=== PATIENT | male | born 1965 | race Caucasian/White ===

== ENCOUNTER 2022-07-30 09:22 | Outpatient (CLI) | payer MEDICARE, SELFPAY | END 2022-07-30 09:23 | disposition home or self-care (01) | PROVIDERS: PCP Physician Assistant Medical; Visit Provider Family Medicine | DX: M51.36 Other intervertebral disc degeneration, lumbar region (principal); M54.16 Radiculopathy, lumbar region | CPT/HCPCS: 62323; J0702; Q9966 ==

== ENCOUNTER 2022-12-13 08:29 | Outpatient (CLI) | payer MEDICARE, SELFPAY | END 2022-12-13 08:30 | disposition home or self-care (01) | LOC: INJ CL 08:29 | PROVIDERS: PCP Physician Assistant Medical; Visit Provider Family Medicine | DX: M51.36 Other intervertebral disc degeneration, lumbar region (principal); M54.16 Radiculopathy, lumbar region | CPT/HCPCS: 62323; J0702; Q9966 ==

== ENCOUNTER 2023-06-20 08:52 | Outpatient (CLI) | payer MEDICARE, SELFPAY ==
--- OUTSIDE RECORDS SUMMARY | 2023-06-20 08:54 | XMS_ITS | Continuity of Care Document ---
Author Name Unknown Organization [facility] Address [address] [place] [address] Phone Care Team Providers Care Manager Inventory Control Name Role Phone Andrés Gary MD Unavailable Unavailable Medications Medication Instructions Dosage Effective Dates (start - stop) Status Comments ACETAMINOPHEN (unknown strength) Not Available - Active GABAPENTIN (unknown strength) Not Available - Active CYCLOBENZAPRINE HCL (unknown strength) Not Available - Active TRAMADOL HCL (unknown strength) Not Available - Active DULOXETINE HCL (unknown strength) Not Available - Active METOPROLOL-HYDROCHLOROTH IAZIDE (unknown strength) Not Available - Active ATORVASTATIN CALCIUM (unknown strength) Not Available - Active Procedures Procedure Date Office/Outpatient Visit,[facility] 2020 Office/outpatient visit,[facility] 2010 Advance Directives Directive Yes / No Effective Date File Name No Information Encounters Encounter Description Practice Location Reason(s) For Visit Diagnoses Date Provider Providers Copied on Encounter [facility], [address], [place], [place], [address], tel:[phone] [facility] No Information Abdirahman Donahue [facility], [address] [place] [address] [address], [place], [address] , [place]. tel:[phone] Office/Outpat ient Visit,[facility], [address], [place], [place], [address], tel:[phone] [facility] Spinal stenosis, lumbar region with neurogenic claudication Sep- Mehbnguyen Donahue [facility], [address] [place] [address] [address], [place], [place], [address] , . tel:[phone] Referring Provider: Dc Campa [facility] [address] [facility], [place], [address]. tel:[phone] Office/outpat ient visit,new, mod Z [facility], [address], [place], [address], [place] tel:[phone] [facility] No Information 1 Abdirahman Bowen. [facility], [address] [place] [address] [address], [place], [place], [address] , [place]. tel:[phone] Family History Family Member Type Diagnosis Age At Onset No Information Payers Payer name Insurance type Covered republican ID Authorrosarioa sushmamalinda(s) [employer] [facility] 2021 [id number] Social History Type Description Quantity Date Captured Comments Sex Male Smoking Status No Information Chief Complaint And Reason For Visit No Information Reason For Referral Reason For Referral No Information History Of Present Illness Encounter Date Complaint History Of Prese nt Illness No Information Functional Status Date Functional Assessmen t No Information Instructions Date Instruction Additional Infor mation No Information Assessments Type Assessment Date No Information Patient Care Teams Name Effective Dates (start - stop) Status Members No Information
--- OUTSIDE RECORDS SUMMARY | 2023-06-20 08:54 | XMS_ITS | Continuity of Care Document ---
Author Name Unknown Organization [facility] Address [address] [place] [address] Phone Care Team Providers Care Vacuum Technician Name Role Phone RN, RN Unavailable Unavailable Allergies, Adverse Reactions, Alerts Substance Reaction Status Criticality No Known Allergies Active No Inform ation Medications Medication Instructions Dosage Effective Dates (start - stop) Status Comments VITAMIN D2 (unknown strength) take 1 capsule by oral route every week Not Available - Active TIROSINT (unknown strength) Not Available - Active Cymbalta 60 mg capsule,delayed release take 1 capsule by oral route every day 60 MG - Active Toprol XL 50 mg tablet,extended release take 1.5 tablets by oral route every day - Active CYCLOBENZAPRINE HCL 10MG TABS TAKE ONE TABLET BY MOUTH THREE TIMES A DAY NEEDED FOR MUSCLE SPASM. - No Longer Active GABAPENTIN 600MG TABS TAKE 2 TABLETS BY MOUTH IN THE MORNING, THEN TAKE 1 TABLET BY MOUTH IN THE AFTERNOON, AND TAKE 2 TABLETS BY MOUTH DAILY AT BEDTIME. - No Longer Active hydrocodone 5 mg-acetaminophen 325 mg tablet take 1 tablet by oral route up to twice a day as needed for severe breakthrough pain - No Longer Active hydrocodone 5 mg-acetaminophen 325 mg tablet take 1 tablet by oral route up to twice a day as needed for severe breakthrough pain - No Longer Active For - 11/26/2016 morphine ER 15 mg tablet,extended release take 1 tablet by oral route every 12 hours 15 MG - No Longer Active Reduce dose. morphine ER 15 mg tablet,extended release take 1 tablet by oral route daily. do not break or chew. Take this once daily for 15 days, then stop. - No Longer Active Reduce dose. Taper off. Procedures Procedure Date Est Pt Eval 15 Min RF Lumbar/Sacral Addt'l Level 7 RF Lumbar/Sacral Single Level 7 Moderate Sedation (older Than 5 Years) F RF Lumbar/Sacral Single Level b 7 RF Lumbar/Sacral Addt'l Level 7 RF Lumbar/Sacral Addt'l Level 7 RF Lumbar/Sacral Single Level 7 RF Lumbar/Sacral Addtl Level RF Lumbar/Sacral Addtl Level Est Pt Eval 25 Min Est Pt Eval 25 Min Est Pt Eval 25 Min barbiturates, NOS Tramadol amphetamine or methamphetamine Assay, phencyclidine Buprenorphine Cocaine Heroin metabolite assay of methadone Methylenedioxyamphetamines (MDA, MDEA, M DMA) assay of opiates Oxycodone Tapentadol Est Pt Eval 25 Min Est Pt Eval 25 Min Therapeutic Activities Therapeutic Procedure Neuromuscular Re-education Aquatic Therapy Neuromuscular Re-education Therapeutic Procedure Est Pt Eval 25 Min Aquatic Therapy Inj Anes Facet Jt; Lumb/sac-3rd Level Ap Inj Anes Facet Jt; Lumb/sac-1st Level Ap Inj Anes Facet Jt; Lumb/sac-2nd Level Ap Inj Anes Facet Jt; Lumb/sac-1st Level Ap Inj Anes Facet Jt; Lumb/sac-2nd Level Ap Inj Anes Facet Jt; Lumb/sac-3rd Level Ap Neuromuscular Re-education Therapeutic Procedure Est Pt Eval 15 Min Inj Anes Facet Jt; Lumb/sac-2nd Level Ma Inj Anes Facet Jt; Lumb/sac-1st Level Ma Inj Anes Facet Jt; Lumb/sac-3rd Level Ma Inj Anes Facet Jt; Lumb/sac-1st Level Ma Inj Anes Facet Jt; Lumb/sac-2nd Level Ma Inj Anes Facet Jt; Lumb/sac-3rd Level Ma Phys Therap Eval Neuromuscular Re-education Inj Anes Epidur; Lumb/sac-ea A 16 Inj Anes Epidur; Lumb/sac 1 Le 16 Est Pt Eval 25 Min Inj Anes Epidur; Lumb/sac 1 Le 16 Trans Epid Lumbosac each addl 6 Est Pt Eval 25 Min Est Pt Eval 15 Min Toxicology Test Group C New Pt Eval 45 Min Advance Directives Directive Yes / No Effective Date File Name No Information Encounters Encounter Description Practice Location Reason(s) For Visit Diagnoses Date Provider Providers Copied on Encounter [facility], [address], [place], [place], [address], [place] tel:[phone] [facility] No Information 7 RN RN. [address], [place], [place], [address], [place]. tel:[phone] Referring Provider: Mini Hinton, [address], [place], [address] . tel:[phone] [facility], [facility], [address], [place], [place], [address], [place] tel:[phone] [facility] No Information No Information Referring Provider: Mini Hinton, [address], [place], [address] . tel:[phone] [facility], [facility], [address], [place], [place], [address], [place] tel:[phone] [facility] No Information No Information Referring Provider: Mini Hinton, [address], [place], [address] . tel:[phone] Est Pt Eval 15 Min [facility], [facility], [address], [place], [address], [place] tel:[phone] [facility] Other intervertebral disc degeneration, lumbosacral regionLong term (current) use of opiate analgesic Romeo Kelly. [address], [address], [place], [place], [address], [place]. tel:[phone] Referring Provider: Mini Hinton, [address], [place], [address] . tel:[phone] [facility], [address], [address], [place], [address], [place] tel:[phone] [facility] Spondylosis w/o myelopathy or radiculopathy, lumbar regionSpondyls w/o myelopathy or radiculopathy, lumbosacr regionOther intervertebral disc degeneration, lumbar regionOther intervertebral disc degeneration, lumbosacral region Feb-0 7 Alex Llamas. [address], [place], [place], [address], [place]. tel:[phone] Referring Provider: aFrhad Moeller, [address], [place], [address] . tel:[phone] [facility], [address], [place], [place], [address], [place] tel:[phone] [facility] No Information Alex Llamas. [address], [place], [place], [address], [place]. tel:[phone] Referring Provider: Farhad Moeller, [address], [place], [address] . tel:[phone] Est Pt Eval 25 Min [facility], [address], [place], [place], [address], [place] tel:[phone] [facility] intermediate manager (current) use of opiate analgesicOther specified dorsopathies, lumbosacral regionOther specified dorsopathies, lumbar regionOther intervertebral disc degeneration, lumbosacral regionOther intervertebral disc degeneration, lumbar regionSpinal stenosis, lumbosacral regionSpondylo listhesis, lumbosacral region No Information Referring Provider: Mini Hinton, [address], [place], [address] . tel:[phone] Est Pt Eval 25 Min [facility], [address], [place], [place], [address], [place] tel:[phone] [facility] intermediate manager (current) use of opiate analgesicOther specified dorsopathies, lumbosacral regionOther specified dorsopathies, lumbar regionOther intervertebral disc degeneration, lumbosacral regionOther intervertebral disc degeneration, lumbar regionSpinal stenosis, lumbosacral regionSpondylo listhesis, lumbosacral region 6 No Information Referring Provider: Mini Hinton, [address], [place], [address] . tel:[phone] Est Pt Eval 25 Min [facility], [address], [place], [place], [address], tel:[phone] [facility] Spinal stenosis, lumbosacral regionOther intervertebral disc degeneration, lumbar regionOther intervertebral disc degeneration, lumbosacral regionOther specified dorsopathies, lumbar regionOther specified dorsopathies, lumbosacral regionLong term (current) use of opiate analgesicSpond ylolisthesis, lumbosacral region 6 No Information Referring Provider: Mini Hinton, [address], [place], [address] . tel:[phone] Est Pt Eval 25 Min [facility], [address], [place], [place], [address], tel:[phone] [facility] (current) use of opiate analgesicSpond ylolisthesis, lumbosacral regionSpinal stenosis, Lumbosacral regionOther intervertebral disc degeneration, lumbar regionOther intervertebral disc degeneration, lumbosacral regionOther specified dorsopathies lumbar regionOther specified dorsopathies lumbosacral region No Information Referring Provider: Mini Hinton, [address], [place], [address] . tel:[phone] Est Pt Eval 25 Min [facility], [address], [place], [place], [address], tel:[phone] [facility] Other intervertebral disc degeneration, lumbar regionOther intervertebral disc degeneration, lumbosacral regionSpinal stenosis, Lumbosacral regionSpondylo listhesis, lumbosacral regionOther specified dorsopathies lumbar regionOther specified dorsopathies lumbosacral regionLong term (current) use of opiate analgesic 6 No Information Referring Provider: Mini Hinton, [address], [place], [address] . tel:[phone] [facility], [address], [place], [place], [address], [place] tel:[phone] [facility] No Information 0- 6 Duran Morse. [address], [place], [place], [address], [place]. tel:[phone] Referring Provider: REFERRAL SELFASHOK. [facility], [address], [place], [place], [address], [place] tel:[phone] [facility] No Information 6 Duran Morse. [address], [place], [place], [address], [place]. tel:[phone] Referring Provider: REFERRAL SELFMN. [facility], [address], [place], [place], [address], [place] tel:[phone] [facility] No Information 6 Duran Morse. [address], [place], [place], [address], [place]. tel:[phone] Referring Provider: Mini Hinton, [address] [facility] [address], [place], [address] . tel:[phone] Est Pt Eval 25 Min [facility], [address], [place], [place], [address], [place] tel:[phone] [facility] Spondylolisthe sis, lumbosacral regionSpinal stenosis, Lumbosacral regionOther intervertebral disc degeneration, lumbar regionOther intervertebral disc degeneration, lumbosacral regionOther specified dorsopathies lumbar regionLong term (current) use of opiate analgesicOther specified dorsopathies lumbosacral region 0 6 No Information Referring Provider: REFERRAL SELFMN. [facility], [address], [place], [place], [address], [place] tel:[phone] [facility] No Information 6 Frank Rivera. [address], [place], [place], [address], [place]. tel:[phone] Referring Provider: REFERRAL ANDREEA, ASHOK. [facility], [address], [place], [address], [place] tel:[phone] [facility] Spondylosis without myelopathy or radiculopathy, lumbar regionSpondylo sis without myelopathy or radiculopathy, lumbosacral regionOther intervertebral disc degeneration, lumbar regionLow back painOther specified dorsopathies lumbar regionSpondylo listhesis, lumbosacral regionOther intervertebral disc degeneration, lumbosacral region 6 Alex Llamas. [address], [place], [place], [address], [place]. tel:[phone] Referring Provider: Farhad Moeller, [address], [place], [address] . tel:[phone] [facility], [address], [place], [place], [address], [place] tel:[phone] [facility] No Information 6 Alex Llamas. [address], [place], [place], [address], [place]. tel:[phone] Referring Provider: Farhad Moeller, [address], [place], [address] . tel:[phone] [facility], [address], [place], [place], [address], [place] tel:[phone] [facility] No Information 6 Deon Escoto. [address], [place], [place], [address], [place]. tel:[phone] Referring Provider: Tigist Chavarria, [address], [place], [address] . tel:[phone] Est Pt Eval 15 Min [facility], [address], [place], [place], [address], [place] tel:[phone] [facility] Spondylosis without myelopathy or radiculopathy, lumbar regionSpondylo sis without myelopathy or radiculopathy, lumbosacral regionOther intervertebral disc degeneration, lumbar regionOther intervertebral disc degeneration, lumbosacral regionSpondylo listhesis, lumbosacral regionOther specified dorsopathies lumbar regionLong term (current) use of opiate analgesic 6 No Information [facility], [address] [facility] [address], [place], [address], [place] tel:[phone] [facility] Other specified dorsopathies lumbar regionOther intervertebral disc degeneration, lumbosacral regionSpondylo sis without myelopathy or radiculopathy, lumbar regionSpondylo sis without myelopathy or radiculopathy, lumbosacral regionOther intervertebral disc degeneration, lumbar regionLow back painLong term (current) use of opiate analgesicSpond ylolisthesis, lumbosacral region 6 Alex Llamas. [address], [place], [place], [address], [place]. tel:[phone] Referring Provider: Farhad Moeller, [address], [place], [address] . tel:[phone] [facility], [address], [place], [place], [address], [place] tel:[phone] [facility] No Information 6 Alex Llamas. [address], [place], [place], [address], [place]. tel:[phone] Referring Provider: Farhad Moeller, [address], [place], [address] . tel:[phone] [facility], [address], [place], [place], [address], [place] tel:[phone] [facility] No Information 6 Duran Morse. [address], [place], [place], [address], [place]. tel:[phone] Referring Provider: Mini Hinton, [address], [place], [address] . tel:[phone] [facility], [address], [place], [address], [place] tel:[phone] [facility] Other intervertebral disc degeneration, lumbosacral regionOther specified dorsopathies lumbar regionSpondylo listhesis, lumbosacral regionLong term (current) use of opiate analgesicOther intervertebral disc degeneration, lumbar regionRadiculo rima, lumbar region 6 Alex Llamas. [address], [place], [place], [address], [place]. tel:[phone] Referring Provider: Farhad Moeller, [address], [place], [address] . tel:[phone] Est Pt Eval [address] [facility], [address], [place], [place], [address], [place] tel:[phone] [facility] Other intervertebral disc degeneration, lumbar regionOther intervertebral disc degeneration, lumbosacral regionOther specified dorsopathies lumbar regionSpondylo listhesis, lumbosacral regionLong term (current) use of opiate analgesic 6 No Information [facility], [address], [place], [place], [address], [place] tel:[phone] [facility] No Information 6 Alex Llamas. [address], [place], [place], [address], [place]. tel:[phone] Referring Provider: Farhad Moeller, [address], [place], [address] . tel:[phone] Est Pt Eval 25 Min [facility], [address], [place], [place], [address], [place] tel:[phone] [facility] Other intervertebral disc degeneration, lumbar regionOther intervertebral disc degeneration, lumbosacral regionOther specified dorsopathies lumbar regionSpondylo listhesis, lumbosacral regionLong term (current) use of opiate analgesic No Information Est Pt Eval 15 Min [facility], [address], [place], [place], [address], [place] tel:[phone] [facility] Other spondylosis with radiculopathy, lumbar regionOther intervertebral disc degeneration, lumbosacral regionLong term (current) use of opiate analgesic 6 No Information New Pt Eval 45 Min [facility], [address], [place], [place], [address], [place] tel:[phone] [facility] Other spondylosis with radiculopathy, lumbar regionSpondylo listhesis, lumbar regionRadiculo rima, lumbosacral regionSpinal stenosis, Lumbar regionLong term (current) use of opiate analgesic 6 No Information [facility], [address], [place], [place], [address], [place] tel:[phone] [facility] No Information RN RN. [address], [place], [place], [address], [place]. tel:[phone] Referring Provider: REFERRAL SELF, [place]. Family History Family Member Type Diagnosis Age At Onset Grandma,Aunt,Uncle Problem (finding) Diabetes mellitus Father Problem (finding) Heart disease Father,uncles,aunt Problem (finding) Cancer Great Grandma Problem (finding) Diabetes mellitus Payers Payer name Insurance type Covered constitution party ID Cem anguiano(s) [employer] [id number] Social History Type Description Quantity Date Captured Comments Sex Male Smoking Status No Information Chief Complaint And Reason For Visit No Information Reason For Referral Reason For Referral No Information Plan Of Treatment Date Type Action Status Goal Tobacco cessation counseling completed History Of Present Illness Encounter Date Complaint History Of Prese nt Illness No Information Functional Status Date Functional Assessmen t No Information Instructions Date Instruction Additional Infor mation No Information Assessments Type Assessment Date No Information Patient Care Teams Name Effective Dates (start - stop) Status Members No Information
== END 2023-06-20 08:53 | disposition home or self-care (01) ==
LOC: INJ CL 08:52
PROVIDERS: PCP Physician Assistant Medical; Visit Provider Family Medicine
DX: M51.36 Other intervertebral disc degeneration, lumbar region (principal); M54.16 Radiculopathy, lumbar region
CPT/HCPCS: 62323; J0702; Q9966

== ENCOUNTER 2024-06-08 06:47 | Outpatient (CLI) | payer MEDICARE, SELFPAY ==
--- OUTSIDE RECORDS SUMMARY | 2024-06-08 06:54 | XMS_ITS | Encounter Summary ---
[facility] Address [address] [place] [address] Care Team Providers Care Splitter Machine Name Role Phone Viraj Nicole APRN, CNP Primary Care Provid er Encounter Details Date Type Department Care Team (Late st Contact Info) Description 08/29/2017 Correspondence [facility] Radiology [address] [place] [address] Radiology, Provider MRI SAFETY SHEET AND COMPATIBILITY FORM Social History Tobacco Use Types Packs/Day Years Used Date Smoking Tobacco: Never Smokeless Tobacco: Never Alcohol Use Standard Drinks/Week Comments No 0 (1 standard drink = 0.6 oz pur e alcohol) Sex and Gender Information Value Date Recorded Sex Assigned at Not on file Gender Identity Not on file Sexual Orientation Not on file documented as of this encounter Plan of Treatment Not on file documented as of this encounter Visit Diagnoses Not on filedocumented in this encounter Care Teams Splitter Machine Relationship Specialty Start Date End Date Viraj Nicole APRN, CNP [address] [place] [address] PCP - General Nurse Practitioner 08/21/18 documented as of this encounter
--- OUTSIDE RECORDS SUMMARY | 2024-06-08 06:54 | XMS_ITS | Clinical Summary ---
Author Organization [facility] Address [address], [place] [address] Care Team Providers Care Dye Tub Tender Name Role Phone Viraj Nicole APRN, CNP Primary Care Provid er Source Comments You are receiving this document as you are listed as the primary care provider,follow-up provider, or the patient has been referred to you for consultation.This is in compliance with the Medicare and[facility] EHR Incentive Program,which states Providers who transition their patient to another setting of careor provider of care or refers their patient to another provider of care shouldprovide summary care record for each transition of care or referral. [facility] Allergies No known active allergies Medications Medication Sig Dispensed Refills Start Date End Date Status acetaminophen (TYLENOL) 325 MG tablet Take 325-650 mg by mouth every 4 hours as needed for Pain. Active metoprolol-hydrochlor othiazide (LOPRESSOR-HCT) 100-25 MG tabletIndications:Ess ential hypertension (HRC) Take 1 Tablet by mouth daily. 90 Tablet 3 10/01/2018 Active DULoxetine (CYMBALTA) 20 MG capsule Take 1 Capsule by mouth daily. 90 Capsule 3 12/07/2018 Active cyclobenzaprine (FLEXERIL) 10 MG tablet TAKE 1 TABLET BY MOUTH THREE TIMES DAILY NEEDED FOR MUSCLE SPASM 90 Tablet 3 01/11/2019 Active Active Problems Problem Noted Date Diagnosed Date Low back pain 11/21/2016 Subclinical hypothyroidism 09/13/2016 Hypertension 03/11/2016 Intention tremor 09/09/2014 Lumbosacral radiculopathy 05/18/2014 Displacement of lumbar inter vertebral disc without myelopathy 01/16/2011 Herniation of lumbar intervertebral disc without myelopathy 01/16/2011 Displacement of cervical int ervertebral disc without myelopathy 04/12/2010 Degeneration of intervertebral disc of lumbosacr al region 04/12/2010 Herniation of cervical inter vertebral disc without myelopathy 04/12/2010 Resolved Problems Problem Noted Date Diagnosed Date Resolved Date Chronic low back pain 03/11/20162016 Immunizations Name Administration Dates Next Due Influenza IIV4 (Quadrivalent) 0.5mL (51231) 03/31,03/25/2017,05/03/2016 Tdap 08/23/2010 Family History Medical History Relation Name Comments No Known Problems Mother Relation Name Status Comments Father (Age 74) pneumonia Mother Alive Daughter Alive Maternal Grandfather Maternal Grandmother Paternal Grandfather Paternal Grandmother Sister 1 Alive Sister 2 Alive Social History Tobacco Use Types Packs/Day Years Used Date Smoking Tobacco: Never Smokeless Tobacco: Never Alcohol Use Standard Drinks/Week Comments Yes 0 (1 standard drink = 0.6 oz pur e alcohol) Occas Sex and Gender Information Value Date Recorded Sex Assigned at Not on file Gender Identity Not on file Sexual Orientation Not on file Last Filed Vital Signs Vital Sign Reading Time Taken Comments Blood Pressure 133/82 01/23/2019 8:19 AM CDT Pulse 49 01/23/2019 8:19 AM CDT Temperature 36.8 C (98.2 F) 01/23/2019 8:19 AM CDT Respiratory Rate 12 01/23/2019 8:19 AM CDT Oxygen Saturation 98% 01/23/2019 8:19 AM CDT Inhaled Oxygen Concentration - - Weight 98.4 kg (217 lb) 11/02/2018 11:01 AM CDT Height 182.9 cm (6') 11/02/2018 11:01 AM CDT Body Mass Index 29.43 11/02/2018 11:01 AM CDT Plan of Treatment Health Maintenance Due Date Last Done Comments Hep C Screening (Preventive Services) 1965 Medicare Annual Wellness Visit 1965 HepB (1) 1985 Zoster/Shingles (1 of 2) 01/02/2016 PSA Screening Discussion 08/30/2019 08/29/2018 DTaP/Tdap/Td (2 - Tdap) 08/23/2020 08/23/2010 Cholesterol 08/30/2023 08/29/2018 Colonoscopy 09/18/2023 09/17/2018 COVID-19 Vaccine ( season) 2024 Influenza (#1) 2024 04/13/2020, 07/2018, 04/18/2018, Additional history exists HIV Screening (Preventive Services) Completed 08/29/2018 HepA Aged Out No longer eligi ble based on patient's age to complete this topic Hib Aged Out No longer eligi ble based on patient's age to complete this topic IPV (Polio) Aged Out No longer eligi ble based on patient's age to complete this topic MCV4 Aged Out No longer eligi ble based on patient's age to complete this topic Pneumococcal Aged Out No longer eligi ble based on patient's age to complete this topic Procedures Procedure Name Priority Date/Time Associated Diagnosis Comments ENDOSCOPY, COLON, SCREENING/DIAGNOS TIC Routine 09/17/2018 3:18 PM CDT Screening for colon cancer PROSTATIC SPECIFIC ANTIGEN(SCREEN) Routine 08/29/2018 9:32 AM MEDICAL TECHNOLOGIST MICROBIOLOGY Screening for prostate cancer HIV 1/2 AG/AB 4TH GEN Routine 08/29/2018 9:32 AM MEDICAL TECHNOLOGIST MICROBIOLOGY Screening for HIV (human immunodeficiency virus) LIPID PANEL & DIRECT LDL (IF NEEDED) Routine 08/29/2018 9:32 AM MEDICAL TECHNOLOGIST MICROBIOLOGY Screening cholesterol level from Last 3 Months or Most Recently Relevant to Health Maintenance Results * Colonoscopy (09/17/2018 3:18 PM CDT) Anatomical Region Laterality Modality Other 09/17/2018 3:18 PM CDT Narrative 09/17/2018 3:18 PM CDT Patient Name: Deyvi Xiong Procedure Date: 09/17/2018 3:18 PM Date of : 1965 Admit Type: Outpatient Age: 53 Gender: Male Note Status: Finalized Attending MD: Misael Olea MD Procedure: Colonoscopy Indications: Screening for colorectal malignant neoplasm Providers: Misael Olea MD, Cynthia Mitchell RN Referring MD: Viraj Nicole NP Medicines: Midazolam 4 mg IV, Fentanyl 100 micrograms IV Complications: No immediate complications. Procedure: After I obtained informed consent, the scope was passed under direct vision. Throughout the procedure, the patient's blood pressure, pulse, and oxygen saturations were monitored continuously. The [id number] was introduced through the anus and advanced to the terminal ileum, with identification of the appendiceal orifice and IC valve. The colonoscopy was performed without difficulty. The patient tolerated the procedure well. The quality of the bowel preparation was excellent. Findings: The perianal exam findings include hemorrhoids. Two sessile polyps were found in the transverse colon and cecum. The polyps were 2 to 3 mm in size. These polyps were removed with a cold biopsy forceps. Resection and retrieval were complete. The entire examined colon appeared normal on direct and retroflexion views. Impression: - Hemorrhoids found on perianal exam. - Two 2 to 3 mm polyps in the transverse colon and in the cecum, removed with a cold biopsy forceps. Resected and retrieved. - The entire examined colon is normal on direct and retroflexion views. Recommendation: - Await pathology results. - Repeat colonoscopy in 5-10 years for surveillance based on pathology results. Procedure Code(s): --- Professional --- 51968, Colonoscopy, flexible; with biopsy, single or multiple Diagnosis Code(s): --- Professional --- Z12.11, Encounter for screening for malignant neoplasm of colon D12.3, Benign neoplasm of transverse colon (hepatic flexure or splenic flexure) D12.0, Benign neoplasm of cecum K64.9, Unspecified hemorrhoids CPT copyright 2016 [employer]. All rights reserved. The codes documented in this report are preliminary and upon meat team member review may be revised to meet current compliance requirements. Misael Olea MD 09/17/2018 4:30:27 PM Number of Addenda: 0 Note Initiated On: 09/17/2018 3:18 PM Endoscopy Report Procedure Note Misael Olea MD - 09/17/2018 Patient Name: Deyvi Xiong Procedure Date: 09/17/2018 3:18 PM Date of : 1965 Admit Type: Outpatient Age: 53 Gender: Male Note Status: Finalized Attending MD: Misael Olea MD Procedure: Colonoscopy Indications: Screening for colorectal malignant neoplasm Providers: Misael Olea MD, Cynthia Mitchell RN Referring MD: Viraj Nicole NP Medicines: Midazolam 4 mg IV, Fentanyl 100 micrograms IV Complications: No immediate complications. Procedure: After I obtained informed consent, the scope was passed under direct vision. Throughout the procedure, the patient's blood pressure, pulse, and oxygen saturations were monitored continuously. The [id number] was introduced through the anus and advanced to the terminal ileum, with identification of the appendiceal orifice and IC valve. The colonoscopy was performed without difficulty. The patient tolerated the procedure well. The quality of the bowel preparation was excellent. Findings: The perianal exam findings include hemorrhoids. Two sessile polyps were found in the transverse colon and cecum. The polyps were 2 to 3 mm in size. These polyps were removed with a cold biopsy forceps. Resection and retrieval were complete. The entire examined colon appeared normal on direct and retroflexion views. Impression: - Hemorrhoids found on perianal exam. - Two 2 to 3 mm polyps in the transverse colon and in the cecum, removed with a cold biopsy forceps. Resected and retrieved. - The entire examined colon is normal on direct and retroflexion views. Recommendation: - Await pathology results. - Repeat colonoscopy in 5-10 years for surveillance based on pathology results. Procedure Code(s): --- Professional --- 38607, Colonoscopy, flexible; with biopsy, single or multiple Diagnosis Code(s): --- Professional --- Z12.11, Encounter for screening for malignant neoplasm of colon D12.3, Benign neoplasm of transverse colon (hepatic flexure or splenic flexure) D12.0, Benign neoplasm of cecum K64.9, Unspecified hemorrhoids CPT copyright 2016 [employer]. All rights reserved. The codes documented in this report are preliminary and upon meat team member review may be revised to meet current compliance requirements. Misael Olea MD 09/17/2018 4:30:27 PM Number of Addenda: 0 Note Initiated On: 09/17/2018 3:18 PM Endoscopy Report Viraj Nicole NCR OPERATOR, EMERGENCY DEPARTMENT RN ET GI PROCED URE ORDERABLES * HIV 1/2 Ag/Ab 4th Generation (08/29/2018 9:32 AM MEDICAL TECHNOLOGIST MICROBIOLOGY) HIV-1 p24 Ag and HIV-1/HIV-2 Ab Nonreactive Nonreactive PN SOFT 08/29/2018 9:32 AM MEDICAL TECHNOLOGIST MICROBIOLOGY 08/29/2018 4:44 PM MEDICAL TECHNOLOGIST MICROBIOLOGY Narrative PN SOFT - 08/29/2018 5:30 PM MEDICAL TECHNOLOGIST MICROBIOLOGY Performed at [facility], [address] [place] [id number] CLIA number [id number] Viraj W Corey HENRY, EMERGENCY DEPARTMENT RN LAB_1 Performing Organization Address City/[facility] Co de Phone Number SOFT [address] [place] [phone] * (ABNORMAL) Lipid Panel - LDLD If Trig High (08/29/2018 9:32 AM MEDICAL TECHNOLOGIST MICROBIOLOGY) Cholesterol 215(H) 0 - 199 mg/dL PN SOFT Triglycerides 121 4 - 149 mg/dL PN SOFT HDL Cholesterol 39(L) >39 mg/dL PN SOFT Cholesterol/HDL Ratio Screen 5.5 PN SOFT LDL Calculated 152(H) 19 - 130 mg/dL PN SOFT Non HDL Chol, Calc 176(H) 0 - 159 mg/dL PN SOFT Hours Fasting 12.0 PN SOFT 08/29/2018 9:32 AM MEDICAL TECHNOLOGIST MICROBIOLOGY 08/29/2018 9:32 AM MEDICAL TECHNOLOGIST MICROBIOLOGY Narrative PN SOFT - 08/29/2018 10:11 AM MEDICAL TECHNOLOGIST MICROBIOLOGY Performed at [facility], [address] [place] [id number] CLIA number [id number] Viraj W Corey HENRY, EMERGENCY DEPARTMENT RN LAB_1 Performing Organization Address City/[facility]/ZIP Co de Phone Number SOFT [address] [place] [phone] * Prostatic Specific Antigen Screen (08/29/2018 9:32 AM MEDICAL TECHNOLOGIST MICROBIOLOGY) Prostate Specific Antigen 2.1 0.0 - 4.0 ng/mL PN SOFT Comment: The Santiago PSA Chemiluminescent immunoassay is used. Results obtained with different test methods or kits cannot be used interchangeably. 08/29/2018 9:32 AM MEDICAL TECHNOLOGIST MICROBIOLOGY 08/29/2018 4:44 PM MEDICAL TECHNOLOGIST MICROBIOLOGY Narrative PN SOFT - 08/29/2018 5:21 PM MEDICAL TECHNOLOGIST MICROBIOLOGY Performed at [facility], [address] [place] [address] CLIA number [id number] Viraj Nicole APRN, CNP LAB_1 [facility] [address] [place] [address] from Last 3 Months or Most Recently Relevant to Health Maintenance Care Teams Dye Tub Tender Relationship Specialty Start Date End Date Viraj Nicole APRN, CNP [address] [place] [address] PCP - General Nurse Practitioner 08/21/18
--- OUTSIDE RECORDS SUMMARY | 2024-06-08 06:54 | XMS_ITS | Encounter Summary ---
Author Organization [facility] Address [address] [place] [id number] Care Team Providers Care Care Specialist Name Role Phone No Ref-Primary, Physician Primary Care Provider [facility] [place] [facility] Provider Encounter Details Date Type Department Care Team (Late st Contact Info) Description 05/08/2021 Documentation Only INTERFACED REPORT Unknown, Provider Social History Tobacco Use Types Packs/Day Years Used Date Smoking Tobacco: Never Smokeless Tobacco: Never Alcohol Use Standard Drinks/Week Comments No 1.7 (1 standard drink = 0.6 oz p ure alcohol) rare Sex and Gender Information Value Date Recorded Sex Assigned at Not on file Legal Sex Male 11:38 AM CDT Gender Identity Not on file Sexual Orientation Not on file COVID-19 Exposure Response Date Recorded In the last month, have you been in contact with someone who was confirmed or suspected to have Coronavirus / COVID-19? Yes 05/08/2021 2:36 AM ICT BUSINESS ANALYST documented as of this encounter Plan of Treatment Not on file documented as of this encounter Visit Diagnoses Not on filedocumented in this encounter Additional Health Concerns Infection Onset Date Last Indicated Resolved Time COVID-19 05/06/2021 05/06/2021 05/27/2021 11:3 9 PM ICT BUSINESS ANALYST Rule Out COVID-19 11/28/2023 11/28/2023 11/28/2023 6:50 PM CDT documented as of this encounter Care Teams Care Specialist Relationship Specialty Start Date End Date No Ref-Primary, Physician PCP - General 05/06/21 11/27/23 Clinic, [facility] [address] [place] [id number] PCP - General 11/28/23 documented as of this encounter
--- OUTSIDE RECORDS SUMMARY | 2024-06-08 06:54 | XMS_ITS | Clinical Summary ---
Author Organization [facility] Address [place], [place] [address] Care Team Providers Care Deputy Insurance Commissioner Name Role Phone Roseanne Mota Primary Care Provider Allergies No known active allergies Medications acetaminophen (TYLENOL EXTRA STRGTH) 500 mg tablet Take 3 tablets by mouth 2 times daily. Max acetaminophen dose: 4000mg in 24 hrs. 0 019 Active aspirin (ECOTRIN) 81 mg enteric coated tabletIndications :Hyperlipidemia, unspecified hyperlipidemia type Take 1 Tablet (81 mg) by mouth once daily with a meal. 30 Tablet 021 Active tamsulosin (FLOMAX) 0.4 mg capsule Take 1 Capsule by mouth once daily. 023 Active benzonatate (TESSALON) 200 mg capsuleIndication s:Lower respiratory infection Take 1 Capsule (200 mg) by mouth 3 times daily if needed for Cough. 30 Capsule 023 Active CaneIndications:D izziness,Balance problem,Chronic bilateral low back pain with right-sided sciatica Narrow Base Quad Cane for home use. For 99 weeks. 1 Each 024 Active gabapentin (NEURONTIN) 300 mg capsuleIndication s:Chronic bilateral low back pain with right-sided sciatica TAKE 1 CAPSULE BY MOUTH THREE TIMES DAILY 270 Capsule 2 024 Active DULoxetine (CYMBALTA) 60 mg Delayed-release capsuleIndication s:Chronic bilateral low back pain with right-sided sciatica Take 1 Capsule (60 mg) by mouth once daily. 90 Capsule 3 024 Active celecoxib (CELEBREX) 200 mg capsuleIndication s:Lumbosacral radiculopathy at L5 Take 1 Capsule (200 mg) by mouth two times daily with meals. 120 Capsule 024 Active losartan (COZAAR) 50 mg tabletIndications :HTN (hypertension) Take 1.5 Tablets (75 mg) by mouth once daily. 135 Tablet 3 024 Active cyclobenzaprine (FLEXERIL) 10 mg tabletIndications :Injury of back, initial encounter Take 1 pill twice daily. 180 Tablet 3 024 Active methylPREDNISolon e (Medrol, Dennys,) 4 mg tabletIndications :Chronic bilateral low back pain with bilateral sciatica Take by mouth as instructed per packaging. 21 Tablet 024 Active metoprolol succinate (TOPROL XL) 50 mg sustained-release tabletIndications :HTN (hypertension) Take 1 tablet by mouth once daily 90 Tablet 2 024 Active traMADoL (ULTRAM) 50 mg tabletIndications :Lumbosacral radiculopathy at L5,Lumbar foraminal stenosis Take 1 Tablet (50 mg) by mouth 3 times daily if needed for Pain. 90 Tablet 1 024 Active atorvastatin (LIPITOR) 20 mg tabletIndications :Hyperlipidemia, unspecified hyperlipidemia type Take 1 Tablet (20 mg) by mouth at bedtime. 90 Tablet 1 024 Active atorvastatin (LIPITOR) 20 mg tabletIndications :Hyperlipidemia, unspecified hyperlipidemia type TAKE 1 TABLET BY MOUTH AT BEDTIME 90 Tablet 2 023 2023 Discontinued(R eorder (E-cancel not sent)) metoprolol succinate (TOPROL XL) 50 mg sustained-release tabletIndications :HTN (hypertension) Take 1 Tablet (50 mg) by mouth once daily. 90 Tablet 024 2023 Discontinued traMADoL (ULTRAM) 50 mg tabletIndications :Chronic pain syndrome Take 1 Tablet (50 mg) by mouth 3 times daily if needed for Pain. 90 Tablet 1 024 2023 Discontinued(R eorder (E-cancel not sent)) Active Problems Problem Noted Date Diagnosed Date Hyperlipidemia 05/08/2021 Action tremor 09/09/2014 Lumbosacral radiculopathy at S1 05/18/2014 Pain medication agreement 10/08/2011 Overview (05/02/2014): ERX verified 120 percocet/month, stable. 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 04/12/2010 C6-7 Disk Herniation from old WC injury 04/12/20 10 Essential hypertension, benign 12/10/2002 HTN (hypertension) Chronic low back pain Sinus tachycardia Elevated troponin Resolved Problems Problem Noted Date Diagnosed Date Resolved Date Pneumonia due to COVID-19 virus 05/08/2021 06/26/2023 Acute encephalopathy 05/08/2021 023 Encounters Date Type Department Care Team Description 05/31/2024 Refill [facility] [address] [place] [address] Roseanne Mota PA Refill Request (Atorvastatin/) 05/17/[address] [address] Dc Campa MD Medication Management (AMB EPIDURAL STEROID INJECTION//) 05/17/[address] [address] Dc Campa MD Error-please disregard 05/14/[address] [address] Roseanne Mota PA Refill Request (metoprolol succinate (TOPROL XL) 50 mg sustained-release tablet) 05/11/2024 Refill [facility] [address] [place] [address] Roseanne Mota PA Refill Request (Metoprolol Succinate) 03/24/[address] [address] Dc Campa MD Refill Request (traMADoL (ULTRAM) 50 mg tablet/) 03/15/[address] [address] Roseanne Mota PA from Last 3 Months Immunizations Name Administration Dates Next Due AMB INFLUENZA, IIV4 (AGE=>6M OS) MDLiu (Flu Clinic Only) 04/13/2020 Influenza, IIV4 03/30/2019, 8,03/25/2017, 6 Tdap 08/23/2010 Family History Medical History Relation Name Comments Cancer-prostate Father Stroke Father stroke at age 5 3. 2014 Lung cancer Mother Other Mother Brain mets Relation Name Status Comments Father Mother Social History Tobacco Use Types Packs/Day Years Used Date Smoking Tobacco: Never Smokeless Tobacco: Never Tobacco Cessation:Counseling Given: No Alcohol Use Standard Drinks/Week Comments No 0 (1 standard drink = 0.6 oz pur e alcohol) PHQ-2 Answer Date Recorded PHQ-2 TOTAL SCORE 0 06/26/2023 Social Connections Answer Date Recorded Do you often feel lonely or isolated from those around you? 0 10/13/2023 Financial Resource Strain Answer Date R ecorded Difficulty of Paying Living Expenses 3 10/13/2023 Difficulty of Paying Living Expenses Not on file 10/13/2023 Food Insecurity Answer Date Recorded Do you worry your food will run out before you are able to buy more? 1 10/13/2023 Transportation Needs Answer Date Record ed Does lack of transportation keep you from medica l appointments? 1 10/13/2023 Does lack of transportation keep you from work, meetings or getting things that you need? 1 10/13/2023 Housing Stability Answer Date Recorded What is your housing situation today? 1 10/13/2023 Sex and Gender Information Value Date Recorded Sex Assigned at Not on file Legal Sex Male 6:51 AM OUTDOOR LANDSCAPE ARCHITECT Gender Identity Not on file Sexual Orientation Not on file Obstetrics History Last Filed Vital Signs Vital Sign Reading Time Taken Comments Blood Pressure 133/89 02/24/2024 7:28 AM CDT Pulse 61 02/24/2024 7:28 AM CDT Temperature 36.6 C (97.9 F) 12/16/2023 2:46 PM CDT Respiratory Rate 18 12/16/2023 2:46 PM CDT Oxygen Saturation 98% 01/09/2024 9:46 AM CDT Inhaled Oxygen Concentration - - Weight 95.3 kg (210 lb) 02/24/2024 7:28 AM CDT Height 185.4 cm (6' 1) 12/16/2023 2:46 PM CDT Body Mass Index 27.71 12/16/2023 2:46 PM CDT Plan of Treatment Upcoming Encounters Date Type Department Care Team (Late st Contact Info) Description 06/08/2024 7:40 AM OUTDOOR LANDSCAPE ARCHITECT Office Visit [facility] [address] [place] [phone] Dc Campa MD [address] [place] [address] Health Maintenance Due Date Last Done Comments HIV for age 15-65 1981 Hepatitis C screening for age 18-79 01/02/1984 Zoster (shingles) series for age 50+ (1 of 2) 01/02/2016 Tetanus booster 08/23/2020 08/23/2010 COVID-19 vaccine series ( season) 2024 Influenza for age 50-64 02/29/2024 04/13/20 20, 03/30/2019, 04/18/2018, Additional history exists BMI (ht and wt on same day) for age 18+ 06/26/2024 06/26/2023, 09/24/2021, 11/29/2020, Additional history exists Depression screening for age 12+ 06/26/2024 06/26/2023, 05/31/2021, 08/22/2020, Additional history exists Lipids for age 45-75 09/07/2027 09/06/2022, 08/22/2020, 08/16/2019, Additional history exists Colonoscopy through age 75 09/17/202809/17 (Completed outside of [facility]), 09/17/2018 (Verified in Care Everywhere or Patient Record) Tdap Completed 08/23/2010 Pneumococcal series for age 6-64 Aged Out No longer eligible based on patient's age to complete this topic Procedures Procedure Name Priority Date/Time Associated Diagnosis Comments LC LIPID PANEL AND CHOL/HDL RATIO Routine 09/06/2022 9:45 AM OUTDOOR LANDSCAPE ARCHITECT HTN (hypertension) from Last 3 Months or Most Recently Relevant to Health Maintenance Results * (ABNORMAL) LC LIPID PANEL AND CHOL/HDL RATIO (09/06/2022 9:45 AM OUTDOOR LANDSCAPE ARCHITECT) [facility] Cholesterol, Total 168 100 - 199 mg/dL 09/10/2022 5:07 PM [facility]T [facility] Triglycerides 347(H) 0 - 149 mg/dL 09/10/2022 5:07 PM CDT [facility] ([facility]) HDL Cholesterol 32(L) >39 mg/dL 5:07 PM CDT [facility] ([facility]) VLDL Cholesterol Lex 56(H) 5 - 40 mg/dL 09/10/2022 5:07 PM CDT [facility] ([facility]) LDL Chol Calc (NIH) 80 0 - 99 mg/dL 09/10/2022 5:07 PM CDT [facility] ([facility]) T. Chol/HDL Ratio 5.3(H) 0.0 - 5.0 ratio 09/10/2022 5:07 PM CDT [facility] ([facility]) Comment: T. Chol/HDL Ratio Men Women 1/2 Avg.Risk 3.4 3.3 Avg.Risk 5.0 4.4 2X Avg.Risk 9.6 7.1 3X Avg.Risk 23.4 11.0 Blood BLOOD SPECIMEN / Unknown Venipuncture / Unknown 09/06/2022 9:45 AM OUTDOOR LANDSCAPE ARCHITECT 09/06/2022 9:48 AM OUTDOOR LANDSCAPE ARCHITECT Narrative [facility] ([facility]) - 09/10/2022 5:07 PM CDT Performed at: [address] [id number] Nutrition Coordinator: Jimmie Collins MD, Phone: [phone] us Roseanne BAHENA SEND OUTS Final R esult [facility] ([facility]) [address] [place] [address], from Last 3 Months or Most Recently Relevant to Health Maintenance Additional Health Concerns Infection Onset Date Last Indicated COVID History Comment:COVID+ test result dates: 05/06/21 [facility] Patient met COVID clearance criteria on 05/18/21. For evaluation of subsequent COVID+ results, refer to the algorithm on the AKN: Isolation Precaution Recommendations for Patients with History of COVID-19 Infection. 05/18/2021 05/18/2021 Insurance MEDICARE PART A HB ONLY [facility] [id number] [place] [address] T[address] UNDETERMINED [id number] [place] [address] [phone] [place] [address] Advance Directives * Full Code (Latest Code Status on File) Date Activated Date Inactivated Comments 05/08/2021 8:16 PM 05/19/2021 3:17 PM Question Answer Comments Code Status Discussion: Reviewed Preferences Care Teams Deputy Insurance Commissioner Relationship Specialty Start Date End Date Roseanne Mota PA [address] [place] [address] PCP - General Family Practice 09/18/11
--- OUTSIDE RECORDS SUMMARY | 2024-06-08 06:54 | XMS_ITS | Encounter Summary ---
Author Organization [facility] Address [address] [place] [id number] Care Team Providers Care Sail Repair Person Name Role Phone Doctor, Edinson FITZPATRICK Primary Care Provider Unavailabl e No Ref-Primary, Physician Primary Care Provider [facility] [place] Primary [facility] Provider Encounter Details Date Type Department Care Team (Late st Contact Info) Description 03/22/2016 Records - [facility] CONVERSION Scan, Provider Social History Tobacco Use Types Packs/Day Years Used Date Smoking Tobacco: Never Alcohol Use Standard Drinks/Week Comments [...] Infection Onset Date Last Indicated Resolved Time Rule Out COVID-19 05/06/2021 05/06/2021 05/07/2021 12:40 PM ARSON AND BOMB INVESTIGATOR COVID-19 05/06/2021 05/06/2021 05/27/2021 11:3 9 PM ARSON AND BOMB INVESTIGATOR Rule Out COVID-19 11/28/2023 11/28/2023 11/28/2023 6:50 PM CDT documented as of this encounter Care Teams Sail Repair Person Relationship Specialty Start Date End Date DoctorEdinson MD PCP - General 02/24/16 02/27/17 No Ref-Primary, Physician PCP - General 05/06/21 11/27/23 [facility] [place] [address] PCP - General 11/28/23 documented as of this encounter
--- OUTSIDE RECORDS SUMMARY | 2024-06-08 06:54 | XMS_ITS | Referral Summary ---
Author Organization [facility] Address [address] [place] [id number] Care Team Providers Care Sports Lawyer Name Role Phone [facility] Primary Care Provider Allergies Active Allergy Reactions Criticality Noted Date Comments No Known Drug Allergy 12/10/2002 Medications celecoxib (CELEBREX) 200 MG capsule Take 200 mg by mouth 2 times daily Active gabapentin (NEURONTIN) 300 MG capsule Take 300 mg by mouth daily Active cyclobenzaprine (FLEXERIL) 10 MG tablet Take 10 mg by mouth 2 times daily Active DULoxetine (CYMBALTA) 60 MG capsule Take 60 mg by mouth daily Active tamsulosin (FLOMAX) 0.4 MG capsule Take 0.4 mg by mouth daily Active traMADol (ULTRAM) 50 MG tablet Take 50 mg by mouth 3 times daily Active Vitamin D3 (CHOLECALCIFERO L) 25 mcg (1000 units) tablet Take 25 mcg by mouth daily Active multivitamin w/minerals (MULTI-VITAMIN) tablet Take 1 tablet by mouth daily Active losartan (COZAAR) 25 MG tabletIndicatio ns:Essential hypertension, benign Take 1 tablet (25 mg) by mouth daily 30 tablet 12/01/2023 Active metoprolol tartrate (LOPRESSOR) 100 MG tabletIndicatio ns:Essential hypertension, benign Take 1 tablet (100 mg) by mouth daily 30 tablet 12/01/2023 Active ondansetron (ZOFRAN ODT) 4 MG ODT tabIndications: Vertigo Take 1 tablet (4 mg) by mouth every 6 hours as needed for nausea or vomiting 20 tablet 11/30/2023 Active acetaminophen (TYLENOL) 325 MG tabletIndicatio ns:Essential hypertension, benign Take 2 tablets (650 mg) by mouth every 4 hours as needed for mild pain or other (and adjunct with moderate or severe pain or per patient request) 11/30/2023 Active atorvastatin (LIPITOR) 20 MG tabletIndicatio ns:Essential hypertension, benign,Cognitiv e impairment Take 1 tablet (20 mg) by mouth daily 30 tablet 1 11/30/2023 Active Active Problems Problem Noted Date Diagnosed Date Vertigo 11/28/2023 Family history of malignant neoplasm of gastrointestinal tract 04/24/2004 Family history of malignant neoplasm of prostate 04/24/2004 Essential hypertension, benign 12/10/2002 Social History Tobacco Use Types Packs/Day Years Used Date Smoking Tobacco: Never Smokeless Tobacco: Never Alcohol Use Standard Drinks/Week Comments No 1.7 (1 standard drink = 0.6 oz p ure alcohol) rare Adolescent Education Answer Date Record ed Getting School Help Needed Not on file 03/22 Sex and Gender Information Value Date Recorded Sex Assigned at Not on file Legal Sex Male 11:38 AM CDT Gender Identity Not on file Sexual Orientation Not on file Last Filed Vital Signs Vital Sign Reading Time Taken Comments Blood Pressure 146/93 11/30/2023 11:43 AM CDT Pulse 84 11/30/2023 11:43 AM CDT Temperature 36.9 C (98.5 F) 11/30/2023 11:43 AM CDT Respiratory Rate 18 11/30/2023 11:43 AM CDT Oxygen Saturation 97% 11/30/2023 11:43 AM CDT Inhaled Oxygen Concentration - - Weight 96.8 kg (213 lb 8 oz) 11/28/2023 5:03 PM CDT Height 188 cm (6' 2) 11/28/2023 5:03 PM CDT Body Mass Index 27.41 11/28/2023 5:03 PM CDT Plan of Treatment Not on file Procedures Procedure Name Priority Date/Time Associated Diagnosis Comments LIPID REFLEX TO DIRECT LDL PANEL Routine 11/30/2023 5:33 AM CDT BASIC METABOLIC PANEL Routine 11/30/2023 5:33 AM CDT HCL HIV 1 & 2 ANTIBODY Routine 04/24/2004 4:41 PM CDT COUNSELING OTHER SPECIFIED- concern re: HIV/Hepati HCL HEPATITIS C VIRUS ANTIBODY Routine 04/24/2004 4:41 PM CDT COUNSELING OTHER SPECIFIED- concern re: HIV/Hepati from Last 3 Months or Most Recently Relevant to Health Maintenance Results * (ABNORMAL) Lipid panel reflex to direct LDL (11/30/2023 5:33 AM CDT) Cholesterol 95 <200 mg/dL 11/30/2023 10:55 AM CDT [facility] Triglycerides 93 <150 mg/dL 11/30/2023 10:55 AM CDT [facility] Direct Measure HDL 35(L) >=40 mg/dL 11/30/2023 10:55 AM CDT [facility] LDL Cholesterol Calculated 41 <=100 mg/dL 11/30/2023 10:55 AM CDT [facility] Non HDL Cholesterol 60 <130 mg/dL 11/30/2023 10:55 AM CDT [facility] Patient Fasting > 8hrs? Unknown 11/30/2023 10:55 AM CDT [facility] Blood STRUCTURE OF LEFT HAND / Unknown Venipuncture / Unknown 11/30/2023 5:33 AM CDT 11/30/2023 5:42 AM CDT Narrative [facility] - 11/30/2023 10:55 AM CDT Cholesterol Desirable: <200 mg/dL Triglycerides Normal: Less than 150 mg/dL Borderline High: 150-199 mg/dL High: 200-499 mg/dL Very High: Greater than or equal to 500 mg/dL Direct Measure HDL Female: Greater than or equal to 50 mg/dL Male: Greater than or equal to 40 mg/dL LDL Cholesterol Desirable: <100mg/dL Above Desirable: 100-129 mg/dL Borderline High: 130-159 mg/dL High: 160-189 mg/dL Very High: >= 190 mg/dL Non HDL Cholesterol Desirable: 130 mg/dL Above Desirable: 130-159 mg/dL Borderline High: 160-189 mg/dL High: 190-219 mg/dL Very High: Greater than or equal to 220 mg/dL Dc Real APRN INFLATED BALL MOLDER LAB - BLOOD ORDERABLE S Final Result [facility] [address] [facility], [address] [place] [address], [facility] [address] Lab (1st floor, no room number) [place] [address], [facility] * (ABNORMAL) Basic metabolic panel (11/30/2023 5:33 AM CDT) [facility] Sodium 143 135 - 145 mmol/L 11/30/2023 6:10 AM CDT LABORATORY Comment:Reference intervals for this test were updated on 03/25/2023 to more accurately reflect our healthy population. There may be differences in the flagging of prior results with similar values performed with this method. Interpretation of those prior results can be made in the context of the updated reference intervals. Potassium 3.7 3.4 - 5.3 mmol/L 11/30/2023 6:10 AM CDT LABORATORY Chloride 108(H) 98 - 107 mmol/L 11/30/2023 6:10 AM CDT LABORATORY Carbon Dioxide (CO2) 29 22 - 29 mmol/L 11/30/2023 6:10 AM CDT LABORATORY Anion Gap 6(L) 7 - 15 mmol/L 11/30/2023 6:10 AM CDT LABORATORY Urea Nitrogen 15.1 6.0 - 20.0 mg/dL 11/30/2023 6:10 AM CDT LABORATORY Creatinine 0.89 0.67 - 1.17 mg/dL 11/30/2023 6:10 AM CDT LABORATORY GFR Estimate >90 >60 mL/min/1. 73m2 11/30/2023 6:10 AM CDT LABORATORY Calcium 9.0 8.6 - 10.0 mg/dL 11/30/2023 6:10 AM CDT LABORATORY Glucose 100(H) 70 - 99 mg/dL 11/30/2023 6:10 AM CDT LABORATORY Blood STRUCTURE OF LEFT HAND / Unknown Venipuncture / Unknown 11/30/2023 5:33 AM CDT 11/30/2023 5:42 AM CDT us Dc Real APRN INFLATED BALL MOLDER LAB - BLOOD ORDERABLE S Final Result [facility] [address] Lab (1st floor, no room number) [place] [address], [facility] * HEPATITIS C AB (04/24/2004 4:41 PM CDT) Hepatitis C Antibody Negative NEG [facility] 04/24/2004 4:41 PM CDT 04/24/2004 4:48 PM CDT us Mariah Cortez MD LABORATORY Final R esult [facility] [address] [place] [address] * HIV-1/HIV-2, SCREEN (04/24/2004 4:41 PM CDT) HIV 1&2 Antibody Negative NEG [facility] 04/24/2004 4:41 PM CDT 04/24/2004 4:48 PM CDT us Mariah Cortez MD LABORATORY Final R esult [facility] [address] [place] [address] from Last 3 Months or Most Recently Relevant to Health Maintenance Insurance [employer] MEDICARE ADVANTAGE [employer] AET MEDICARE ADVANTAGE Advance Directives For more information, please contact: [phone] * Full Code (Latest Code Status on File) Date Activated Date Inactivated Comments 11/28/2023 5:03 PM 11/30/2023 2:53 PM All basic and advanced life-sustaining interventions are performed as appropriate Question Answer Comments Code status determined by: Discussion with mike nt/ legal decision maker Care Teams Sports Lawyer Relationship Specialty Start Date End Date [facility], [address] [address] PCP - General 11/28/23
--- OUTSIDE RECORDS SUMMARY | 2024-06-08 06:54 | XMS_ITS | Encounter Summary ---
Author Organization [place] Address [address] [place] [address] Care Team Providers Care Drama Director Name Role Phone Doctor, None MD Primary Care Provider Unavailabl e No Ref-Primary, Physician Primary Care Provider [facility], [facility] Primary Care Provider Encounter Details Date Type Department Care Team (Late st Contact Info) Description 05/23/[address] [phone] Amrik Rose MD [address] [place] [address] ER ENCOUNTER (Primary Dx) Social History Tobacco Use Types Packs/Day Years Used Date Smoking Tobacco: Never Alcohol Use Standard Drinks/Week Comments Yes 1.7 (1 standard drink = 0.6 oz p ure alcohol) rare Sex and Gender Information Value Date Recorded Sex Assigned at Not on file Legal Sex Male 11:38 AM CDT Gender Identity Not on file Sexual Orientation Not on file documented as of this encounter Progress Notes * 05/23/2003 11:59 PM CSTAddended by: AMRIK ROSE on: 05/30/2003,5:11 PM Modules accepted: Progress Notes Addended by: MARION JULIO on: 05/30/2003,3:12 PM Modules accepted: Progress Notes 00:00 Emergency Depar tment Encounter-[facility]) [Entered: 00:00 Clinical Asst ([facility])] : 67 CHIEF COMPLAINT: Cough and fever. HISTORY OF PRESENT ILLNESS: Deyvi Xiong is a 38-yea r-old male who has been ill for the last two days. He has felt chilled and hot, has been coughing an d producing yellow phlegm with some mild tightness in his chest, has had no pain or shortness of snow th specifically, has had a sore throat and congestion. His and daughter are both ill with simil ar symptoms, but are not complaining of body aches like the patient is experiencing. He has been wel l otherwise, has no history of asthma. IMMUNIZATIONS: The patient did not get a flu shot this fall. MEDICATIONS: Pogz-wrd-zvcovjc cold remedies. ALLERGIES: None. PHYSICAL EXAMINATION: This is an alert male whose temperature is 97.8, pulse 99, respirations 18, blood pressure 138/80, pulse ox 96% on room air. HEENT exam shows that conjunctivae are clear, tympanic membranes normal. Mouth and ph arynx are mildly red, nose congested. CHEST shows clear equal breath sounds. CARDIOVASCULAR EXAM - R egular S1/S2 without murmur. ABDOMEN - Bowel sounds are active. It is soft and nontender. There ar e no masses or guarding. BACK is negative. EXTREMITIES are normally developed. SKIN is clear, no ra sh. NEURO - Patient is alert and oriented, exam within normal limits. EMERGENCY DEPARTMENT COURSE: The possibilities were discussed with the patient. He probably has a viral syndrome at this point. This could be influenza. He did not get a flu shot, and he is at risk. The patient will be treated conservatively with antibiotic coverage, as he has had a previous episode of walking pneumonia. DIS CHARGE PLAN: The patient was given a work slip excusing him from his duties for two days. Tylenol m ay be used every four hours for fevers or aches. He will be started on Zithromax 500 mg now, then 25 0 mg a day for four more days. Decongestant of choice may be used, Robitussin with codeine two tsp e very four hours as needed for cough (6 oz prescribed). He should drink extra fluids and needs to be rechecked with his doctor in 5-7 days or in 10-14 days. He may return to the Emergency Department as needed. DIAGNOSIS: 1. Respiratory infection. 2. Productive cough. [id number] DIANA HAGEN MD D : 05/24/2003 00:05 MT: Document: [id number] [place], [place] Name: DEYVI XIONG EMERGENCY ROOM ENCOUNTER Page 2 of 2 LCN: WOLF DSC: 05/23 [place], [place] Name: MR#: : Admit Date: DEYVI XIONG 000 07-03-02 1965 05/23/2003 Doctor: DIANA HAGEN MD EMERGENCY ROOM ENCOUNTER Page 1 of 2 Electronically filed by Marion Julio 05/30/2003 3:11 PM documented in this encounter Plan of Treatment Not on file documented as of this encounter Visit Diagnoses Diagnosis ER ENCOUNTER- Primary documented in this encounter Additional Health Concerns Infection Onset Date Last Indicated Resolved Time Rule Out COVID-19 05/06/2021 05/06/2021 05/07/2021 12:40 PM DRIER AND GRINDER TENDER COVID-19 05/06/2021 05/06/2021 05/27/2021 11:3 9 PM DRIER AND GRINDER TENDER Rule Out COVID-19 11/28/2023 11/28/2023 11/28/2023 6:50 PM CDT documented as of this encounter Care Teams Drama Director Relationship Specialty Start Date End Date Doctor, MD [place] PCP - General 02/24/16 02/27/17 No Ref-Primary, Physician PCP - General 05/06/21 11/27/[address] [address] PCP - General 11/28/23 documented as of this encounter
--- OUTSIDE RECORDS SUMMARY | 2024-06-08 06:54 | XMS_ITS | Clinical Summary ---
Author Organization [place] Address [address] [place] [address] Care Team Providers Care Safety Specialist Name Role Phone [facility], [facility] [place] Primary Care Provider Allergies Active Allergy Reactions [...] of prostate 04/24/2004 Essential hypertension, benign 12/10/2002 Family History Medical History Relation Comments Cerebrovascular Disease Father Heart Disease Paternal Uncle Relation Status Comments Father Paternal Uncle Social History Tobacco Use Types Packs/Day Years [...] 11/28/2023 5:03 PM CDT Plan of Treatment Health Maintenance Due Date Last Done Comments ADVANCE CARE PLANNING 1965 ANNUAL REVIEW OF HM ORDERS 1966 CT COLONOGRAPHY 1966 FIT 1966 FLEX SIG 1966 sDNA (Cologuard) 1966 COLONOSCOPY 01/02/1976 COLORECTAL CANCER SCREENING 01/02/1976 HEPATITIS B IMMUNIZATION (1 of 3 - 19+ 3-dose series) 1985 ZOSTER IMMUNIZATION (1 of 2) 01/02/2016 DTAP/TDAP/TD IMMUNIZATION (2 - Td or Tdap) 08/23/2020 08/23/2010 MEDICARE ANNUAL WELLNESS VISIT 08/22/2021 08/22/2020 PHQ-2 (once per calendar year) 2023 COVID-19 Vaccine ( season) 2024 INFLUENZA VACCINE (#1) 2024 , 03/31/2019, 04/18/2018, Additional history exists BMP 11/29/2024 11/30/2023, 06/0 06/2023, 11/28/2023, Additional history exists LIPID 11/29/2024 11/30/2023 GLUCOSE 11/29/2026 11/30/2023, 06/0 06/2023, 11/28/2023, Additional history exists RSV VACCINE (1 - 1-dose 75+ series) 2041 HEPATITIS C SCREENING Completed 04/24/2004 HIV SCREENING Completed 04/24/2004 HPV IMMUNIZATION Aged Out No longer e ligible based on patient's age to complete this topic MENINGITIS IMMUNIZATION Aged Out No l onger eligible based on patient's age to complete this topic Pneumococcal Vaccine: Pediatrics (0 to 5 Years) and At-Risk Patients (6 to 64 Years) Aged Out No longer eligible based on patient's age to complete this topic RSV MONOCLONAL ANTIBODY Aged Out No l onger eligible based on patient's age to complete [...] Greater than or equal to 220 mg/dL us Dc Real APRN ACCOUNTS PAYABLE ADMINISTRATOR LAB - BLOOD ORDERABLE S Final Result [facility] [address], Room [address] [place] [address], [facility] Acute Care Lab [address] Lab (1st floor, no room number) [place] [address], [facility] * (ABNORMAL) Basic metabolic panel (11/30/2023 5:33 AM CDT) Sodium 143 135 - 145 mmol/L 11/30/2023 [...] 5:42 AM CDT us Dc Real APRN ACCOUNTS PAYABLE ADMINISTRATOR LAB - BLOOD ORDERABLE S Final Result LABORATORY [facility] Acute Care Lab [address] Lab (1st floor, no room number) [place] [address] * HEPATITIS C AB (04/24/2004 4:41 PM CDT) Hepatitis C Antibody Negative NEG [facility] 04/24/2004 4:41 PM CDT 04/24/2004 4:48 PM CDT Mariah Cortez MD LABORATORY Final R esult [facility] [address] [place] [address] * HIV-1/HIV-2, SCREEN (04/24/2004 4:41 PM CDT) HIV 1&2 Antibody Negative NEG [facility] 04/24/2004 4:41 PM CDT 04/24/2004 4:48 PM CDT us Mariah Cortez MD LABORATORY Final R esult [facility] [address] [place] [address] from Last 3 Months or Most Recently Relevant to Health Maintenance Insurance [employer] MEDICARE ADVANTAGE [employer] [facility] MEDICARE ADVANTAGE Advance Directives For more information, please contact: [phone] * Full Code (Latest Code Status on File) Date Activated Date Inactivated Comments 11/28/2023 5:03 PM 11/30/2023 2:53 PM All basic and advanced life-sustaining interventions are performed as appropriate Question Answer Comments Code status determined by: Discussion with mike nt/ legal decision maker Care Teams Safety Specialist Relationship Specialty Start Date End Date [facility], [place] [address] PCP - General 11/28/23
--- OUTSIDE RECORDS SUMMARY | 2024-06-08 06:54 | XMS_ITS | Encounter Summary ---
Author Organization [facility] Address [address], [place] [address] Care Team Providers Care Oil Pumper Name Role Phone Viraj Nicole APRN, CNP Primary Care Provid er Encounter Details Date Type Department Care Team (Late st Contact Info) Description 09/15/2017 Refill Order [facility] [address] [place] [address] Eva Edwards APRN, HISTOLOGY ASSISTANT [address] [place] [address] Social History Tobacco Use Types Packs/Day Years Used Date Smoking Tobacco: Never Smokeless Tobacco: Never Alcohol Use Standard Drinks/Week Comments No 0 (1 standard drink = 0.6 oz pur e alcohol) Sex and Gender Information Value Date Recorded Sex Assigned at Not on file Gender Identity Not on file Sexual Orientation Not on file documented as of this encounter Nursing Notes * Gail Dumont RN - 09/18/2017 9:13 AM CDT Reviewed and patient notified. Gail Dumont RN/[facility] documented in this encounter Plan of Treatment Not on file documented as of this encounter Results * TSH (09/26/2017 12:06 PM CDT) TSH, Sensitive 1.94 0.30 - 4.50 uIU/ml [facility] 09/26/2017 12:0 6 PM CDT 09/26/2017 12:08 PM CDT Narrative [facility] - 09/26/2017 4:10 PM CDT Performed at [facility], [address] [place] [address] Eva Edwards APRN, CNP LAB_1 Performing Organization Address [facility] Co de Phone Number [facility] [phone] * Potassium (09/26/2017 12:06 PM CDT) Potassium 4.0 3.5 - 5.1 mmol/L [facility] 09/26/2017 12:0 6 PM CDT 09/26/2017 12:08 PM CDT Narrative [facility] - 09/26/2017 3:41 PM CDT Performed at [facility], [address] [place], [place] [id number] Eva Edwards APRN, CNP LAB_1 Performing Organization Address [facility] de Phone Number [facility] [phone] * Creatinine / GFR (09/26/2017 12:06 PM CDT) Creatinine 0.89 0.73 - 1.18 mg/dl [facility] GFR, Estimated >60 >60 ml/min/1.7 3m2 [facility] GFR, Est., If Black >60 >60 ml/min/1.7 3m2 [facility] 09/26/2017 12:0 6 PM CDT 09/26/2017 12:08 PM CDT Narrative [facility] - 09/26/2017 3:41 PM CDT Performed at [facility], [address] [place], [place] [id number] Eva Edwards APRN, CNP LAB_1 Performing Organization Address [facility] Co de Phone Number [facility] [phone] * Sodium (09/26/2017 12:06 PM CDT) Sodium 140 136 - 145 mmol/L [facility] 09/26/2017 12:0 6 PM CDT 09/26/2017 12:08 PM CDT Narrative [facility] - 09/26/2017 3:41 PM CDT Performed at [facility], [address] [place] [address] Eva Edwards APRN, CNP LAB_1 [facility] [phone] documented in this encounter Visit Diagnoses Diagnosis Encounter for long-term (current) use of medications- Primary Encounter for long-term (current) use of other medications Encounter for long-term (current) use of medications Encounter for long-term (current) use of other medications documented in this encounter Care Teams Oil Pumper Relationship Specialty Start Date End Date Viraj Nicole APRN, CNP [address] [place] [address] PCP - General Nurse Practitioner 08/21/18 documented as of this encounter
--- OUTSIDE RECORDS SUMMARY | 2024-06-08 06:54 | XMS_ITS | Encounter Summary ---
Author Organization [place] Address [address] [place] [address] Care Team Providers Care Project Executive Name Role Phone No Ref-Primary, Physician Primary Care Provider [facility] Primary Care Provider Encounter Details Date Type Department Care Team (Late st Contact Info) Description 06/20/2021 Documentation Only INTERFACED REPORT Unknown, Provider Social [...] or suspected to have Coronavirus / COVID-19? No / Unsure 06/20/2021 4:52 PM MEDICAL SCIENTIFIC OFFICER documented as of this encounter Plan of Treatment Not on file documented as of this encounter Visit Diagnoses Not on filedocumented in this encounter Additional Health Concerns Infection Onset Date Last Indicated Resolved Time Rule Out COVID-19 11/28/2023 11/28/2023 11/28/2023 6:50 PM CDT documented as of this encounter Care Teams Project Executive Relationship Specialty Start Date End Date No Ref-Primary, Physician PCP - General 05/06/21 11/27/[address] [address] PCP - General 11/28/23 documented as of this encounter
--- OUTSIDE RECORDS SUMMARY | 2024-06-08 06:55 | XMS_ITS | Referral Summary ---
Author Organization [facility] Address [address] [place] [address] Care Team Providers Care Pastry Supervisor Name Role Phone Elsewhere, Pcp Primary Care Provider Unavailabl e Source Comments Patient records contain information from all sites at [facility]. For routine questions regarding patient records, call [phone] during business hours, M-F 8:00 AM - 5:00 PM Central Time. Record requests for emergency care only can be directed to [phone] at any time.[facility] Allergies No known active allergies Medications hydroCHLOROthiazide (HydroDiuril) 25 mg tablet Take 1 tablet by mouth daily. 4 Active losartan (Cozaar) 50 mg tablet Take 1 tablet by mouth daily. 4 Active ondansetron ODT (Zofran-ODT) 4 mg disintegrating tablet Dissolve 4 mg in the mouth. 4 Active traMADoL (Ultram) 50 mg tablet Take 50 mg by mouth 3 (three) times a day as needed. 4 Active gabapentin (Neurontin) 300 mg capsule Take 1 capsule by mouth 3 (three) times a day. 4 Active DULoxetine (Cymbalta) [address] capsule Take 1 capsule by mouth daily. 3 Active cholecalciferol, vitamin D3, 25 mcg (1,000 Unit) tablet Take 25 mcg by mouth daily. Active atorvastatin (Lipitor) 20 mg tablet Take 1 tablet by mouth at bedtime. 3 Active metoprolol succinate (Toprol XL) 50 mg 24 hr tablet Take 1 tablet (50 mg total) by mouth daily. Do not crush or chew. 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 Gender Identity Not on file Sexual Orientation Not on file Last Filed Vital Signs Vital Sign Reading Time Taken Comments Blood Pressure 152/110 12/28/2023 10:00 AM CDT Pulse 144 12/28/2023 9:45 AM CDT Temperature - - Respiratory Rate 14 12/28/2023 10:00 AM CDT Oxygen Saturation 98% 12/28/2023 10:00 AM CDT Inhaled Oxygen Concentration - - Weight 93 kg (205 lb 0.4 oz) 12/27/2023 4:58 PM CDT Height - - Body Mass Index - - Plan of Treatment Not on file Procedures Procedure Name Priority Date/Time Associated Diagnosis Comments BASIC METABOLIC PANEL, S/P STAT 12/27/2023 5:15 PM CDT from Last 3 Months or Most Recently Relevant to Health Maintenance Results * (ABNORMAL) Basic Metabolic Panel (12/27/2023 5:15 PM CDT) Potassium, P 3.4(L) 3.6 - 5.2 mmol/L 12/27/2023 5:37 PM CDT [facility] Sodium, P 142 135 - 145 mmol/L 12/27/2023 5:37 PM CDT [facility] Chloride, P 99 98 - 107 mmol/L 12/27/2023 5:37 PM CDT [facility] Bicarbonate, P 31(H) 22 - 29 mmol/L 12/27/2023 5:37 PM CDT [facility] Anion Gap, P 12 7 - 15 12/27/2023 5:37 PM CDT [facility] BUN (Blood Urea Nitrogen), P 16 8 - 24 mg/dL 12/27/2023 5:37 PM CDT [facility] Creatinine 1.22 0.74 - 1.35 mg/dL 12/27/2023 5:37 PM CDT [facility] Estimated GFR (eGFR) 69 >=60 mL/min/BSA 12/27/2023 5:37 PM CDT [facility] Comment: Estimated GFR calculated using the 2020 CKD_EPI creatinine equation. Calcium, Total, P 10.0 8.6 - 10.0 mg/dL 12/27/2023 5:37 PM CDT [facility] Glucose, P 119 70 - 140 mg/dL 12/27/2023 5:37 PM CDT [facility] Blood (Blood, Venous) 12/27/2023 5:15 PM CDT 12/27/2023 5:19 PM CDT Dominique Arreaga M.D., M.B.A. LAB BLOOD ADD-ON Fin al Result [facility] [address] [place] [address], [facility] [address] [place] [address] from Last 3 Months or Most Recently Relevant to Health Maintenance Insurance [employer] Care Teams Pastry Supervisor Relationship Specialty Start Date End Date Elsewhere, Pcp PCP - General Internal Medicine 12/27/23
--- OUTSIDE RECORDS SUMMARY | 2024-06-08 06:55 | XMS_ITS | Clinical Summary ---
Author Organization [facility] Address [address] [place] [address] Care Team Providers Care Wire Chief Name Role Phone Elsewhere, Pcp Primary Care Provider Unavailabl e Source Comments Patient records contain information from all sites at [facility]. For routine questions regarding patient records, call [phone] during business hours, M-F 8:00 AM - 5:00 PM Central Time. 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 Gender Identity Not on file Sexual Orientation [...] Mass Index - - Plan of Treatment Health Maintenance Due Date Last Done Comments CT Colonography 1966 Cologuard 1966 Colonoscopy 1966 Colorectal Cancer Screening 1966 FIT 1966 HIV Screening 1966 Hepatitis C Screening 1966 Hepatitis B Vaccines (1 of 3 - 19+ 3-dose series) 1985 Zoster Vaccines (1 of 2) 01/02/2016 DTaP,Tdap,and Td Vaccines (2 - Td or Tdap) 08/23/2020 08/23/2010 Depression Screening (Annual PHQ-2) 06/30/2023 COVID-19 Vaccine ( - 2023- season) 2024 Influenza Vaccine (#1) 2024 , 03/30/2019, 04/18/2018, Additional history exists Creatinine Level (Kidney Function Test) 01/29/2025 01/30/2024, 01/09/2024, 12/27/2023, Additional history exists Potassium Level 01/29/2025 01/30/2024, 12/28, 12/27/2023, Additional history exists Sodium Level 01/29/2025 01/30/2024, 12/28, 12/27/2023, Additional history exists Fasting Glucose for Diabetes Screening 01/29/2027 01/30/2024, 01/09/2024, 12/27/2023, Additional history exists Lipid (Cholesterol) Screening 11/29/2028 11/30/2023, 09/06/2022, 08/22/2020, Additional history exists IPV Vaccines Aged Out No longer eligi ble based on patient's age to complete this topic Pneumococcal vaccine (0-64 years) Aged Out No longer eligible based on [...] M.B.A. LAB BLOOD ADD-ON Fin al Result [facility] [address] [place] [address], [facility] ST[facility] [address] [place] [address] from Last 3 Months or Most Recently Relevant to Health Maintenance Insurance [employer] Care Teams Wire Chief Relationship Specialty Start Date End Date Elsewhere, Pcp PCP - General Internal Medicine 12/27/23
--- OUTSIDE RECORDS SUMMARY | 2024-06-08 06:55 | XMS_ITS ---
Author Organization [facility] Address [address] [place] [address] Care Team Providers Care Mirror Installer Name Role Phone Unavailable Unavailable Unavailable Surgery Details Not on file Complications Check Surgery Details section. Procedure Estimated Blood Loss Check Surgery Details section. Procedure Findings Check Surgery Details section. Procedure Specimens Taken Check Surgery Details section.
== END 2024-06-08 06:48 | disposition home or self-care (01) ==
LOC: INJ CL 06:52
PROVIDERS: PCP Physician Assistant Medical; Visit Provider Family Medicine
DX: M54.16 Radiculopathy, lumbar region (principal); M51.369 Other intervertebral disc degeneration, lumbar region without mention of lumbar back pain or lower extremity pain
CPT/HCPCS: 62323; J0702; Q9966

== ENCOUNTER 2024-09-17 10:20 | Outpatient (CLI) | payer MEDICARE, SELFPAY | END 2024-09-17 10:21 | disposition home or self-care (01) | LOC: INJ CL 10:21 | PROVIDERS: PCP Physician Assistant Medical; Visit Provider Family Medicine | DX: M54.16 Radiculopathy, lumbar region (principal); M51.362 Other intervertebral disc degeneration, lumbar region with discogenic back pain and lower extremity pain | CPT/HCPCS: 62323; J0702; Q9966 ==

== ENCOUNTER 2024-12-14 07:30 | Outpatient (CLI) | payer MEDICARE, SELFPAY | END 2024-12-14 07:31 | disposition home or self-care (01) | LOC: INJ CL 07:32 | PROVIDERS: PCP Physician Assistant Medical; Visit Provider Family Medicine | DX: M54.16 Radiculopathy, lumbar region (principal); M51.369 Other intervertebral disc degeneration, lumbar region without mention of lumbar back pain or lower extremity pain | CPT/HCPCS: 62323; J0702; Q9966 ==